=== PATIENT | female | born 1950 | race Caucasian/White ===

== ENCOUNTER 2024-10-04 20:12 | Inpatient (IN) | payer OTHER ==
[~2024-10-04] VITALS: Ht 165.1 cm; Wt 66.7 kg
[2024-10-04 20:20] VITALS: BP 154/81; PULSE 75; RESP 20; TEMP 98.5; O2SAT 99
[2024-10-04] MEDS ORDERED: OxyCODONE HCL/ACETAMINOPHEN 5-325 MG TABLET PO PRN ×2 (21:15)
[2024-10-04] MEDS ORDERED: DEXTROSE 50%-WATER 25 GM/50 ML SYRINGE IVP PRN (21:15)
[2024-10-04] MEDS ORDERED: 0.9% SODIUM CHLORIDE 10 ML SYRINGE IVP PRN (21:15)
[2024-10-04] MEDS ORDERED: ONDANSETRON HCL 4 MG/2 ML VIAL IVP PRN (21:15)
[2024-10-04] MEDS ORDERED: ROSU10TA72 PO (21:28)
[2024-10-04] MEDS ORDERED: BENA-18 PO (21:28)
[2024-10-04] MEDS ORDERED: TRAZ-257 PO (21:28)
[2024-10-04] MEDS ORDERED: OLAN5TAB52 PO (21:28)
[2024-10-04] MEDS ORDERED: DIVA-111 PO (21:28)
[2024-10-04] MEDS ORDERED: SERT-162 PO (21:28)
[2024-10-04] MEDS ORDERED: GLIP5TAB16 PO (21:28)
[2024-10-04] MEDS ORDERED: CEFP200T12 PO (21:28)
[2024-10-04 21:40] LABS: BASOPHILS % (AUTO) 0.3 % (0.0-2.0); EOSINOPHILS % (AUTO) 2.3 % (1.0-6.0); HEMATOCRIT 38.6 % (36-46); LYMPHOCYTES # (AUTO) 1.4 K/uL (1.0-4.8); LYMPHOCYTES % (AUTO) 25.2 % (22.0-44.0); MEAN CORPUSCULAR HEMOGLOBIN 32.1 pg (26.0-34.0); MEAN CORPUSCULAR HGB CONC 33.6 G/dL (31.0-37.0); MEAN CORPUSCULAR VOLUME 95 fL (80-100); MONOCYTES # (AUTO) 0.4 K/uL (0.1-1.0); MONOCYTES % (AUTO) 6.4 % (2.0-9.0); NEUTROPHILS # (AUTO) 3.6 K/uL (1.8-7.7); NEUTROPHILS % (AUTO) 65.8 % (40.0-70.0); PLATELET COUNT (AUTO) 186 K/uL (150-450); RED BLOOD CELL COUNT(AUTO) 4.04 MIL/uL (4.00-5.20); RED CELL DISTRIBUTION WIDTH 12.5 % (11.5-14.5); WHITE BLOOD COUNT (AUTO) 5.5 K/uL (4.5-11.0)
[2024-10-04 21:54] LABS: ALBUMIN 3.3 g/dL (3.4-5.0); BILIRUBIN,TOTAL 0.2 mg/dL (0.1-1.0); CALCIUM, TOTAL 9.1 mg/dL (8.8-10.5); CREATININE 1.34 mg/dL (0.60-1.30); POTASSIUM 4.5 mmol/L (3.5-5.1); TOTAL PROTEIN, SERUM 6.4 g/dL (6.4-8.2)
[2024-10-04] MEDS: OLANZapine 5 MG TABLET PO SCH (22:39)
[2024-10-04] MEDS: BENAZEPRIL HCL 20 MG TABLET PO SCH (22:39)
[2024-10-04] MEDS: INSULIN LISPRO 100 UNITS/ML SQ PRN (22:39)
[2024-10-04] MEDS: DIVALPROEX SODIUM 250 MG DR TABLET PO SCH (22:39)
[2024-10-04] MEDS ORDERED: INFLUENZA VIRUS VACCINE TVS (6MO+) 2024-25/PF 45 MCG/0.5 ML SYRINGE IM. ONE (23:00)
[2024-10-04] MEDS: EMPAGLIFLOZIN 25 MG TABLET PO SCH (23:02)
[2024-10-04] MEDS: CEPHALEXIN MONOHYDRATE 500 MG CAPSULE PO SCH (23:02)
[2024-10-04 23:36] LABS: GLUCOMETER DEV NAME(LOC) 6S.2; GLUCOSE,POINT OF CARE 426 MG/DL (70-110)
[2024-10-05 02:39] VITALS: BP 127/56; PULSE 59; RESP 18; TEMP 97.4; O2SAT 99
[2024-10-05 06:51] LABS: GLUCOMETER DEV NAME(LOC) 6N.1B; GLUCOSE,POINT OF CARE 222 MG/DL (70-110)
[2024-10-05] MEDS: SERTRALINE HCL 100 MG TABLET PO SCH (08:30)
[2024-10-05] MEDS: PANTOPRAZOLE SODIUM 40 MG DR TABLET PO SCH (08:30)
[2024-10-05] MEDS: HEPARIN SODIUM,PORCINE 5,000 UNITS/ML VIAL SQ SCH (08:30)
[2024-10-05] MEDS: DOCUSATE SODIUM 100 MG CAPSULE PO SCH (08:31)
[2024-10-05 08:34] VITALS: BP 99/55; PULSE 64; RESP 18; TEMP 98.2; O2SAT 98
[2024-10-05] MEDS ORDERED: INSULIN GLARGINE,HUM.REC.ANLOG 100 UNITS/ML SQ SCH (09:00)
[2024-10-05] MEDS ORDERED: PANTOPRAZOLE SODIUM 40 MG/VIAL IVP SCH (09:00)
[2024-10-05] MEDS: INSULIN GLARGINE,HUM.REC.ANLOG 100 UNITS/ML SQ SCH (09:00)
[2024-10-05] MEDS ORDERED: CEPHALEXIN MONOHYDRATE 500 MG CAPSULE PO SCH (09:00)
[2024-10-05] MEDS ORDERED: EMPAGLIFLOZIN 25 MG TABLET PO SCH (09:00)
[2024-10-05 10:10] LABS: BASOPHILS % (AUTO) 0.5 % (0.0-2.0); EOSINOPHILS % (AUTO) 4.1 % (1.0-6.0); HEMATOCRIT 37.3 % (36-46); HEMOGLOBIN 12.9 g/dL (12.0-16.0); LYMPHOCYTES # (AUTO) 2.2 K/uL (1.0-4.8); LYMPHOCYTES % (AUTO) 36.2 % (22.0-44.0); MEAN CORPUSCULAR HEMOGLOBIN 32.5 pg (26.0-34.0); MEAN CORPUSCULAR HGB CONC 34.5 G/dL (31.0-37.0); MEAN CORPUSCULAR VOLUME 94 fL (80-100); MONOCYTES # (AUTO) 0.3 K/uL (0.1-1.0); MONOCYTES % (AUTO) 5.3 % (2.0-9.0); NEUTROPHILS # (AUTO) 3.2 K/uL (1.8-7.7); NEUTROPHILS % (AUTO) 53.9 % (40.0-70.0); PLATELET COUNT (AUTO) 200 K/uL (150-450); RED BLOOD CELL COUNT(AUTO) 3.96 MIL/uL (4.00-5.20); RED CELL DISTRIBUTION WIDTH 12.3 % (11.5-14.5)
[2024-10-05 16:47] VITALS: BP 133/73; PULSE 63; RESP 18; TEMP 98; O2SAT 99
[2024-10-05 20:18] VITALS: BP 129/71; PULSE 80; RESP 20; TEMP 97.9; O2SAT 99
[2024-10-05 20:25] LABS: GLUCOMETER DEV NAME(LOC) 6N.1B; GLUCOSE,POINT OF CARE 336 MG/DL (70-110)
[2024-10-05 20:25] LABS: GLUCOMETER DEV NAME(LOC) 6N.1B; GLUCOSE,POINT OF CARE 406 MG/DL (70-110)
[2024-10-05] MEDS: ROSUVASTATIN CALCIUM 10 MG TABLET PO SCH (20:35)
[2024-10-05] MEDS: TraZODone HCL 100 MG TABLET PO SCH (20:36)
[2024-10-05] MEDS: SitaGLIPtin PHOSPHATE 50 MG TABLET PO SCH (20:36)
[2024-10-05 21:55] LABS: GLUCOMETER DEV NAME(LOC) 6N.2B; GLUCOSE,POINT OF CARE 426 MG/DL (70-110)
[2024-10-05 21:56] LABS: GLUCOMETER DEV NAME(LOC) 6S.2; GLUCOSE,POINT OF CARE 106 MG/DL (70-110)
[2024-10-06 05:45] VITALS: BP 107/60; PULSE 69; RESP 18; TEMP 98; O2SAT 98
[2024-10-06 07:10] VITALS: BP 114/64; PULSE 72; RESP 18; TEMP 98.2; O2SAT 96
[2024-10-06 07:11] LABS: GLUCOMETER DEV NAME(LOC) 6N.2B; GLUCOSE,POINT OF CARE 249 MG/DL (70-110)
[2024-10-06] MEDS ORDERED: SERT-440 PO (12:55)
[2024-10-06] MEDS ORDERED: CEPH-558 PO (12:55)
[2024-10-06] MEDS ORDERED: SITA50 PO (12:55)
[2024-10-06] MEDS ORDERED: TRAZ-257 PO (12:55)
[2024-10-06] MEDS ORDERED: EMPA25TA3 PO (12:55)
[2024-10-06] MEDS ORDERED: INSLAN SQ (12:55)
[2024-10-06] MEDS ORDERED: BENA-8 PO (12:55)
[2024-10-06] MEDS ORDERED: DIVA-111 PO (12:55)
[2024-10-06] MEDS ORDERED: OLAN5TAB52 PO (12:55)
[2024-10-06 15:01] VITALS: BP 100/53; PULSE 76; RESP 18; TEMP 97.9; O2SAT 99
[2024-10-06 17:31] LABS: GLUCOMETER DEV NAME(LOC) 6N.2B; GLUCOSE,POINT OF CARE 211 MG/DL (70-110)
[2024-10-06 17:35] LABS: GLUCOMETER DEV NAME(LOC) 6S.2; GLUCOSE,POINT OF CARE 302 MG/DL (70-110)
[2024-10-06 19:45] VITALS: BP 120/58; PULSE 70; RESP 18; TEMP 98; O2SAT 98
[2024-10-06 21:36] LABS: GLUCOMETER DEV NAME(LOC) 6S.2; GLUCOSE,POINT OF CARE 262 MG/DL (70-110)
[2024-10-07 05:00] VITALS: BP 126/57; PULSE 58; RESP 18; TEMP 98.4; O2SAT 97
[2024-10-07 06:21] LABS: GLUCOMETER DEV NAME(LOC) 6N.2B; GLUCOSE,POINT OF CARE 136 MG/DL (70-110)
[2024-10-07 08:06] VITALS: BP 96/54; PULSE 68; RESP 18; TEMP 98.2; O2SAT 99
[2024-10-07 16:09] VITALS: BP 103/57; PULSE 69; RESP 18; TEMP 98.2; O2SAT 99
[2024-10-07 19:25] VITALS: BP 133/67; PULSE 63; RESP 20; TEMP 98; O2SAT 100
[2024-10-07 21:51] LABS: GLUCOMETER DEV NAME(LOC) 6N.2B; GLUCOSE,POINT OF CARE 253 MG/DL (70-110)
[2024-10-08 04:22] VITALS: BP 121/68; PULSE 84; RESP 20; TEMP 98.4; O2SAT 97
[2024-10-08 06:16] LABS: GLUCOMETER DEV NAME(LOC) 6N.2B; GLUCOSE,POINT OF CARE 266 MG/DL (70-110)
[2024-10-08 06:25] LABS: GLUCOMETER DEV NAME(LOC) 6S.2; GLUCOSE,POINT OF CARE 226 MG/DL (70-110)
[2024-10-08 06:26] LABS: GLUCOMETER DEV NAME(LOC) 6S.2; GLUCOSE,POINT OF CARE 154 MG/DL (70-110)
[2024-10-08 08:05] LABS: GLUCOMETER DEV NAME(LOC) 6N.1B; GLUCOSE,POINT OF CARE 255 MG/DL (70-110)
[2024-10-08 08:46] VITALS: BP 139/87; PULSE 77; RESP 18; TEMP 97.3; O2SAT 97
[2024-10-08 13:10] LABS: GLUCOMETER DEV NAME(LOC) 6N.1B; GLUCOSE,POINT OF CARE 218 MG/DL (70-110)
[2024-10-08 16:00] VITALS: BP 130/80; PULSE 78; RESP 19; TEMP 98; O2SAT 98
[2024-10-08 18:01] LABS: GLUCOMETER DEV NAME(LOC) 6N.2B; GLUCOSE,POINT OF CARE 78 MG/DL (70-110)
[2024-10-08 19:27] VITALS: BP 100/64; PULSE 68; RESP 18; TEMP 98; O2SAT 99
[2024-10-08 21:25] LABS: GLUCOMETER DEV NAME(LOC) 6N.1B; GLUCOSE,POINT OF CARE 178 MG/DL (70-110)
[2024-10-09 04:04] VITALS: BP 139/69; PULSE 66; RESP 18; TEMP 97.7; O2SAT 95
[2024-10-09 06:20] LABS: GLUCOMETER DEV NAME(LOC) 6S.2; GLUCOSE,POINT OF CARE 172 MG/DL (70-110)
[2024-10-09 07:12] VITALS: BP 118/51; PULSE 58; RESP 18; TEMP 97.7; O2SAT 99
[2024-10-09 14:31] LABS: GLUCOMETER DEV NAME(LOC) 6N.1B; GLUCOSE,POINT OF CARE 74 MG/DL (70-110)
[2024-10-09 14:31] LABS: GLUCOMETER DEV NAME(LOC) 6N.1B; GLUCOSE,POINT OF CARE 170 MG/DL (70-110)
[2024-10-09 15:40] VITALS: BP 122/60; PULSE 62; RESP 18; TEMP 98.2; O2SAT 99
[2024-10-09 19:51] VITALS: BP 124/72; PULSE 66; RESP 19; TEMP 97.5; O2SAT 98
[2024-10-09 20:15] LABS: GLUCOMETER DEV NAME(LOC) 6S.2; GLUCOSE,POINT OF CARE 156 MG/DL (70-110)
[2024-10-10 05:04] VITALS: BP 120/74; PULSE 73; RESP 18; TEMP 98.1; O2SAT 97
[2024-10-10 05:41] LABS: GLUCOMETER DEV NAME(LOC) 6N.1B; GLUCOSE,POINT OF CARE 286 MG/DL (70-110)
[2024-10-10 07:16] LABS: GLUCOMETER DEV NAME(LOC) 6N.2B; GLUCOSE,POINT OF CARE 275 MG/DL (70-110)
[2024-10-10 08:25] VITALS: BP 113/59; PULSE 71; RESP 20; TEMP 98.3; O2SAT 98
[2024-10-10 16:30] VITALS: BP 136/64; PULSE 72; RESP 18; TEMP 98; O2SAT 96
[2024-10-10 20:12] VITALS: BP 135/80; PULSE 74; RESP 20; TEMP 98.2; O2SAT 98
[2024-10-10 21:55] LABS: GLUCOMETER DEV NAME(LOC) 6N.2B; GLUCOSE,POINT OF CARE 272 MG/DL (70-110)
[2024-10-10 23:05] LABS: GLUCOMETER DEV NAME(LOC) 6N.2B; GLUCOSE,POINT OF CARE 257 MG/DL (70-110)
[2024-10-10 23:35] LABS: COVID AG,FIA SOURCE NASAL SWAB
[2024-10-10 23:42] LABS: SARS-COV2 (COVID) ANTIGEN,FIA Negative (Negative)
[2024-10-11 06:25] VITALS: BP 115/60; PULSE 69; RESP 18; TEMP 98.5; O2SAT 96
[2024-10-11 06:40] LABS: GLUCOMETER DEV NAME(LOC) 6N.2B; GLUCOSE,POINT OF CARE 164 MG/DL (70-110)
[2024-10-11 15:00] LABS: GLUCOMETER DEV NAME(LOC) 6S.2; GLUCOSE,POINT OF CARE 198 MG/DL (70-110)
[2024-10-11 15:00] LABS: GLUCOMETER DEV NAME(LOC) 6S.2; GLUCOSE,POINT OF CARE 186 MG/DL (70-110)
[2024-10-11 19:20] VITALS: BP 112/64; PULSE 66; RESP 20; TEMP 98.3; O2SAT 97
[2024-10-11 22:41] LABS: GLUCOMETER DEV NAME(LOC) 6N.2B; GLUCOSE,POINT OF CARE 189 MG/DL (70-110)
[2024-10-11 22:41] LABS: GLUCOMETER DEV NAME(LOC) 6N.2B; GLUCOSE,POINT OF CARE 142 MG/DL (70-110)
[2024-10-12 03:38] VITALS: BP 124/74; PULSE 62; RESP 18; TEMP 98.3; O2SAT 98
[2024-10-12 06:56] LABS: GLUCOMETER DEV NAME(LOC) 6N.1B; GLUCOSE,POINT OF CARE 151 MG/DL (70-110)
[2024-10-12 08:21] VITALS: BP 124/64; PULSE 68; RESP 18; TEMP 98.4; O2SAT 99
[2024-10-12 17:01] VITALS: BP 111/63; PULSE 70; RESP 18; TEMP 98.3; O2SAT 99
[2024-10-12 19:09] VITALS: BP 158/77; PULSE 71; RESP 19; TEMP 97.9; O2SAT 99
[2024-10-12] MEDS ORDERED: BENA-18 PO (19:58)
[2024-10-12 20:37] LABS: GLUCOMETER DEV NAME(LOC) 6N.1B; GLUCOSE,POINT OF CARE 173 MG/DL (70-110)
[2024-10-12 20:37] LABS: GLUCOMETER DEV NAME(LOC) 6S.2; GLUCOSE,POINT OF CARE 133 MG/DL (70-110)
[2024-10-14 06:11] LABS: GLUCOMETER DEV NAME(LOC) 6N.2B; GLUCOSE,POINT OF CARE 194 MG/DL (70-110)
== END 2024-10-12 20:56 | DRG 638 ==
LOC: 6S 20:12
PROVIDERS: ADMIT Internal Medicine; ATTEND Internal Medicine
PROC: GZ56ZZZ Individual Psychotherapy, Supportive (ICD-10-PCS; principal; 2024-10-05)
DX: E11.65 Type 2 diabetes mellitus with hyperglycemia (principal); F20.0 Paranoid schizophrenia; N39.0 Urinary tract infection, site not specified; Z91.148 Patient's other noncompliance with medication regimen for other reason; I10 Essential (primary) hypertension; E78.00 Pure hypercholesterolemia, unspecified; Z53.20 Procedure and treatment not carried out because of patient's decision for unspecified reasons; Z79.4 Long term (current) use of insulin; Z79.84 Long term (current) use of oral hypoglycemic drugs; Z91.199 Patient's noncompliance with other medical treatment and regimen due to unspecified reason; Z79.899 Other long term (current) drug therapy
CPT/HCPCS: 80053; 82962; 83036; 85025; J1644; J1815

== ENCOUNTER 2024-10-12 15:58 | Inpatient (IN) | payer OTHER, MEDICAID ==
[~2024-10-12] VITALS: Ht 167.6 cm; Wt 132.0 kg
[~2024-10-12 15:58] MED LIST: BENA-8 PO; CEPH-558 PO; DIVA-111 PO; EMPA25TA3 PO; INSLAN SQ; OLAN5TAB52 PO; ROSU10TA72 PO; SERT-440 PO; SITA50 PO; TRAZ-257 PO
[2024-10-12] MEDS ORDERED: HALOPERIDOL 5 MG TABLET PO PRN (19:45)
[2024-10-12] MEDS ORDERED: BENA-18 PO (19:58)
[2024-10-12] MEDS: TraZODone HCL 100 MG TABLET PO SCH (21:00)
[2024-10-12] MEDS: DIVALPROEX SODIUM 250 MG DR TABLET PO SCH (21:00)
[2024-10-12] MEDS: OLANZapine 5 MG TABLET PO SCH (21:00)
[2024-10-12 21:30] VITALS: BP 188/96; PULSE 80; RESP 1; RESP 18; TEMP 98.4; O2SAT 97
[2024-10-13 06:40] LABS: GLUCOMETER DEV NAME(LOC) 3EX.2; GLUCOSE,POINT OF CARE 123 MG/DL (70-110)
[2024-10-13] MEDS: EMPAGLIFLOZIN 25 MG TABLET PO SCH (08:39)
[2024-10-13] MEDS: SitaGLIPtin PHOSPHATE 50 MG TABLET PO SCH (08:39)
[2024-10-13] MEDS: CEPHALEXIN MONOHYDRATE 500 MG CAPSULE PO SCH (08:39)
[2024-10-13] MEDS: SERTRALINE HCL 100 MG TABLET PO SCH (08:40)
[2024-10-13] MEDS: INSULIN GLARGINE,HUM.REC.ANLOG 100 UNITS/ML SQ SCH (09:00)
[2024-10-13 09:50] VITALS: BP 134/56; PULSE 74; RESP 18; TEMP 97.4; O2SAT 98
[2024-10-13 11:36] LABS: GLUCOMETER DEV NAME(LOC) 3EX.2; GLUCOSE,POINT OF CARE 231 MG/DL (70-110)
[2024-10-13] MEDS: INSULIN LISPRO 100 UNITS/ML SQ PRN (11:42)
[2024-10-13] MEDS ORDERED: DEXTROSE 50%-WATER 25 GM/50 ML SYRINGE IVP PRN (11:45)
[2024-10-13] MEDS ORDERED: MAG HYDROX/ALUMINUM HYD/SIMETH ES 30 ML SUSPENSION UDCUP PO PRN (11:45)
[2024-10-13] MEDS ORDERED: MAGNESIUM HYDROXIDE SUSPENSION 30 ML UDCUP PO PRN (11:45)
[2024-10-13] MEDS ORDERED: ACETAMINOPHEN 325 MG TABLET PO PRN (11:45)
[2024-10-13] MEDS ORDERED: CloNIDine HCL 0.1 MG TABLET PO PRN (11:45)
[2024-10-13] MEDS ORDERED: ONDANSETRON 4 MG TABLET PO PRN (11:45)
[2024-10-13] MEDS ORDERED: ALBUTEROL SULFATE HFA 90 MCG/PUFF 8 GM INHALER IH PRN (11:45)
[2024-10-13] MEDS ORDERED: NICOTINE 14 MG/24 HOUR PATCH TD PRN (11:45)
[2024-10-13] MEDS ORDERED: LOPERAMIDE HCL 2 MG CAPSULE PO PRN (11:45)
[2024-10-13] MEDS ORDERED: PETROLATUM,WHITE 28 GM JELLY TP PRN (11:45)
[2024-10-13] MEDS: DOCUSATE SODIUM 100 MG CAPSULE PO PRN (11:48)
[2024-10-13 17:06] LABS: GLUCOMETER DEV NAME(LOC) 3EX.2; GLUCOSE,POINT OF CARE 223 MG/DL (70-110)
[2024-10-13 20:51] LABS: GLUCOMETER DEV NAME(LOC) 3EX.2; GLUCOSE,POINT OF CARE 155 MG/DL (70-110)
[2024-10-13 20:55] VITALS: BP 120/58; PULSE 80; RESP 18; TEMP 98.1; O2SAT 98
[2024-10-13] MEDS: BENAZEPRIL HCL 20 MG TABLET PO SCH (20:58)
[2024-10-13] MEDS: ROSUVASTATIN CALCIUM 10 MG TABLET PO SCH (20:58)
[2024-10-14 06:26] LABS: GLUCOMETER DEV NAME(LOC) 3EX.2; GLUCOSE,POINT OF CARE 184 MG/DL (70-110)
[2024-10-14 07:25] LABS: BASOPHILS % (AUTO) 1.4 % (0.0-2.0); EOSINOPHILS % (AUTO) 3.3 % (1.0-6.0); HEMATOCRIT 31.3 % (36-46); HEMOGLOBIN 10.8 g/dL (12.0-16.0); LYMPHOCYTES # (AUTO) 1.3 K/uL (1.0-4.8); LYMPHOCYTES % (AUTO) 29.7 % (22.0-44.0); MEAN CORPUSCULAR HEMOGLOBIN 32.8 pg (26.0-34.0); MEAN CORPUSCULAR HGB CONC 34.4 G/dL (31.0-37.0); MEAN CORPUSCULAR VOLUME 95 fL (80-100); MONOCYTES # (AUTO) 0.5 K/uL (0.1-1.0); MONOCYTES % (AUTO) 10.8 % (2.0-9.0); NEUTROPHILS # (AUTO) 2.3 K/uL (1.8-7.7); NEUTROPHILS % (AUTO) 54.8 % (40.0-70.0); PLATELET COUNT (AUTO) 158 K/uL (150-450); RED BLOOD CELL COUNT(AUTO) 3.28 MIL/uL (4.00-5.20); RED CELL DISTRIBUTION WIDTH 12.8 % (11.5-14.5); WHITE BLOOD COUNT (AUTO) 4.3 K/uL (4.5-11.0)
[2024-10-14 07:32] LABS: HEMOGLOBIN A1C 9.9 % (3.8-5.6)
[2024-10-14 07:43] LABS: ALBUMIN 2.7 g/dL (3.4-5.0); BILIRUBIN,TOTAL 0.2 mg/dL (0.1-1.0); CALCIUM, TOTAL 8.6 mg/dL (8.8-10.5); CREATININE 1.89 mg/dL (0.60-1.30); POTASSIUM 4.3 mmol/L (3.5-5.1); THYROID STIMULATING HORMONE 2.49 uIU/mL (0.36-3.74); TOTAL PROTEIN, SERUM 5.4 g/dL (6.4-8.2)
[2024-10-14 08:44] VITALS: BP 130/60; PULSE 61; RESP 18; TEMP 97.8; O2SAT 98
[2024-10-14 08:59] LABS: CHOL/HDL RATIO 2.6 (3.9-5.7)
[2024-10-14 12:46] LABS: GLUCOMETER DEV NAME(LOC) 3EX.2; GLUCOSE,POINT OF CARE 185 MG/DL (70-110)
[2024-10-14 18:10] LABS: GLUCOMETER DEV NAME(LOC) 3EX.2; GLUCOSE,POINT OF CARE 185 MG/DL (70-110)
[2024-10-14 21:03] VITALS: RESP 18; TEMP 98
[2024-10-14 21:06] LABS: GLUCOMETER DEV NAME(LOC) 3EX.2; GLUCOSE,POINT OF CARE 245 MG/DL (70-110)
[2024-10-14] MEDS: ZOLPIDEM TARTRATE 10 MG TABLET PO PRN (21:35)
[2024-10-14] MEDS: LORazepam 2 MG TABLET PO PRN (22:48)
[2024-10-15 06:25] LABS: GLUCOMETER DEV NAME(LOC) 3EX.2; GLUCOSE,POINT OF CARE 179 MG/DL (70-110)
[2024-10-15] MEDS: AmLODIPine BESYLATE 10 MG TABLET PO SCH (08:44)
[2024-10-15 12:06] LABS: GLUCOMETER DEV NAME(LOC) 3EX.2; GLUCOSE,POINT OF CARE 231 MG/DL (70-110)
[2024-10-15 17:11] LABS: GLUCOMETER DEV NAME(LOC) 3EX.2; GLUCOSE,POINT OF CARE 204 MG/DL (70-110)
[2024-10-15 21:41] LABS: GLUCOMETER DEV NAME(LOC) 3EX.2; GLUCOSE,POINT OF CARE 168 MG/DL (70-110)
[2024-10-15 22:11] VITALS: BP 135/65; PULSE 78; RESP 18; TEMP 98; O2SAT 98
[2024-10-16 06:45] LABS: GLUCOMETER DEV NAME(LOC) 3EX.2; GLUCOSE,POINT OF CARE 278 MG/DL (70-110)
[2024-10-16 11:40] LABS: GLUCOMETER DEV NAME(LOC) 3EX.2; GLUCOSE,POINT OF CARE 218 MG/DL (70-110)
[2024-10-16 12:23] VITALS: BP 149/88; PULSE 83; RESP 19; TEMP 97.8; O2SAT 97
[2024-10-16 16:45] LABS: GLUCOMETER DEV NAME(LOC) 3EX.2; GLUCOSE,POINT OF CARE 208 MG/DL (70-110)
[2024-10-16 20:26] LABS: GLUCOMETER DEV NAME(LOC) 3EX.2; GLUCOSE,POINT OF CARE 215 MG/DL (70-110)
[2024-10-16 22:07] VITALS: RESP 18
[2024-10-17 09:56] VITALS: BP 140/68; PULSE 75; RESP 18; TEMP 97.4; O2SAT 98
[2024-10-17 11:35] LABS: GLUCOMETER DEV NAME(LOC) 3EX.2; GLUCOSE,POINT OF CARE 215 MG/DL (70-110)
[2024-10-17 17:01] LABS: GLUCOMETER DEV NAME(LOC) 3EX.2; GLUCOSE,POINT OF CARE 187 MG/DL (70-110)
[2024-10-17 20:38] VITALS: BP 138/66; PULSE 71; RESP 19; TEMP 97.3; O2SAT 98
[2024-10-18 06:26] LABS: GLUCOMETER DEV NAME(LOC) 3EX.2; GLUCOSE,POINT OF CARE 196 MG/DL (70-110)
[2024-10-18 10:19] VITALS: BP 153/91; PULSE 75; RESP 18; TEMP 97.5; O2SAT 97
[2024-10-18 12:01] LABS: GLUCOMETER DEV NAME(LOC) 3EX.2; GLUCOSE,POINT OF CARE 229 MG/DL (70-110)
[2024-10-18 20:53] VITALS: RESP 18
[2024-10-19 09:29] VITALS: RESP 19; TEMP 98.2
[2024-10-19 22:45] VITALS: RESP 18
[2024-10-20 08:30] VITALS: RESP 18
[2024-10-20 20:13] VITALS: RESP 18
[2024-10-21 08:20] VITALS: BP 154/72; PULSE 72; RESP 19; TEMP 98.2; O2SAT 97
[2024-10-21 21:19] VITALS: BP 145/89; PULSE 78; RESP 18; TEMP 97.9; O2SAT 99
[2024-10-22 06:51] LABS: GLUCOMETER DEV NAME(LOC) 3EX.2; GLUCOSE,POINT OF CARE 340 MG/DL (70-110)
[2024-10-22 07:39] LABS: CALCIUM, TOTAL 9.2 mg/dL (8.8-10.5); CREATININE 1.81 mg/dL (0.60-1.30)
[2024-10-22 15:59] VITALS: BP 148/76; PULSE 75; RESP 18; TEMP 97.6; O2SAT 99
[2024-10-22 22:15] LABS: GLUCOMETER DEV NAME(LOC) 3EX.2; GLUCOSE,POINT OF CARE 304 MG/DL (70-110)
[2024-10-22 23:29] VITALS: BP 163/93; PULSE 83; RESP 18; TEMP 97.6; O2SAT 97
[2024-10-23 06:31] LABS: GLUCOMETER DEV NAME(LOC) 3EX.2; GLUCOSE,POINT OF CARE 159 MG/DL (70-110)
[2024-10-23 09:51] VITALS: BP 123/61; PULSE 75; RESP 19; TEMP 96.8; O2SAT 96
[2024-10-23 12:21] LABS: GLUCOMETER DEV NAME(LOC) 3EX.2; GLUCOSE,POINT OF CARE 360 MG/DL (70-110)
[2024-10-23 17:21] LABS: GLUCOMETER DEV NAME(LOC) 3EX.2; GLUCOSE,POINT OF CARE 201 MG/DL (70-110)
[2024-10-23 20:11] VITALS: BP 130/79; PULSE 79; RESP 18; TEMP 97.9; O2SAT 98
[2024-10-23 21:35] LABS: GLUCOMETER DEV NAME(LOC) 3EX.2; GLUCOSE,POINT OF CARE 243 MG/DL (70-110)
[2024-10-24 06:35] LABS: GLUCOMETER DEV NAME(LOC) 3EX.2; GLUCOSE,POINT OF CARE 282 MG/DL (70-110)
[2024-10-24 09:04] VITALS: BP 115/68; PULSE 85; RESP 18; TEMP 97.1; O2SAT 99
[2024-10-24 12:06] LABS: GLUCOMETER DEV NAME(LOC) 3EX.2; GLUCOSE,POINT OF CARE 150 MG/DL (70-110)
[2024-10-24 18:00] LABS: GLUCOMETER DEV NAME(LOC) 3EX.2; GLUCOSE,POINT OF CARE 66 MG/DL (70-110)
[2024-10-24 18:30] LABS: GLUCOMETER DEV NAME(LOC) 3EX.2; GLUCOSE,POINT OF CARE 182 MG/DL (70-110)
[2024-10-24 20:39] VITALS: BP 142/63; PULSE 73; RESP 17; TEMP 97.3
[2024-10-25 06:31] LABS: GLUCOMETER DEV NAME(LOC) 3EX.2; GLUCOSE,POINT OF CARE 287 MG/DL (70-110)
[2024-10-25 07:23] LABS: CALCIUM, TOTAL 8.6 mg/dL (8.8-10.5); CREATININE 1.72 mg/dL (0.60-1.30); POTASSIUM 4.2 mmol/L (3.5-5.1)
[2024-10-25 08:24] VITALS: BP 140/85; PULSE 65; RESP 17; TEMP 98; O2SAT 97
[2024-10-25 12:00] LABS: GLUCOMETER DEV NAME(LOC) 3EX.2; GLUCOSE,POINT OF CARE 184 MG/DL (70-110)
[2024-10-25 17:36] LABS: GLUCOMETER DEV NAME(LOC) 3EX.2; GLUCOSE,POINT OF CARE 298 MG/DL (70-110)
[2024-10-25 20:00] VITALS: BP 146/72; PULSE 79; RESP 18; TEMP 98; O2SAT 99
[2024-10-25 20:21] LABS: GLUCOMETER DEV NAME(LOC) 3EX.2; GLUCOSE,POINT OF CARE 266 MG/DL (70-110)
[2024-10-26 06:10] LABS: GLUCOMETER DEV NAME(LOC) 3EX.2; GLUCOSE,POINT OF CARE 305 MG/DL (70-110)
[2024-10-26 11:04] VITALS: BP 147/72; PULSE 69; RESP 19; TEMP 97; O2SAT 98
[2024-10-26 11:51] LABS: GLUCOMETER DEV NAME(LOC) 3EX.2; GLUCOSE,POINT OF CARE 229 MG/DL (70-110)
[2024-10-26 17:56] LABS: GLUCOMETER DEV NAME(LOC) 3EX.2; GLUCOSE,POINT OF CARE 334 MG/DL (70-110)
[2024-10-26 20:11] LABS: GLUCOMETER DEV NAME(LOC) 3EX.2; GLUCOSE,POINT OF CARE 380 MG/DL (70-110)
[2024-10-26 20:26] VITALS: BP 134/65; PULSE 75; RESP 19; TEMP 98.2; O2SAT 98
[2024-10-27 06:31] LABS: GLUCOMETER DEV NAME(LOC) 3EX.2; GLUCOSE,POINT OF CARE 333 MG/DL (70-110)
[2024-10-27 08:36] VITALS: BP 161/73; PULSE 76; RESP 18; TEMP 97.8; O2SAT 98
[2024-10-27 12:05] LABS: GLUCOMETER DEV NAME(LOC) 3EX.2; GLUCOSE,POINT OF CARE 310 MG/DL (70-110)
[2024-10-27 16:20] LABS: GLUCOMETER DEV NAME(LOC) 3EX.2; GLUCOSE,POINT OF CARE 332 MG/DL (70-110)
[2024-10-27 20:17] VITALS: BP 157/77; PULSE 79; RESP 18; TEMP 97.4; O2SAT 99
[2024-10-27 21:31] LABS: GLUCOMETER DEV NAME(LOC) 3EX.2; GLUCOSE,POINT OF CARE 360 MG/DL (70-110)
[2024-10-28 06:30] LABS: GLUCOMETER DEV NAME(LOC) 3EX.2; GLUCOSE,POINT OF CARE 351 MG/DL (70-110)
[2024-10-28 09:00] VITALS: BP 145/70; PULSE 78; RESP 18; TEMP 97.8; O2SAT 98
[2024-10-28 11:56] LABS: GLUCOMETER DEV NAME(LOC) 3EX.2; GLUCOSE,POINT OF CARE 346 MG/DL (70-110)
[2024-10-28 17:31] LABS: GLUCOMETER DEV NAME(LOC) 3EX.2; GLUCOSE,POINT OF CARE 275 MG/DL (70-110)
[2024-10-28 20:23] VITALS: BP 144/70; PULSE 85; RESP 19; TEMP 97.4; O2SAT 95
[2024-10-28 21:40] LABS: GLUCOMETER DEV NAME(LOC) 3EX.2; GLUCOSE,POINT OF CARE 347 MG/DL (70-110)
[2024-10-29 06:21] LABS: GLUCOMETER DEV NAME(LOC) 3EX.2; GLUCOSE,POINT OF CARE 366 MG/DL (70-110)
[2024-10-29 08:00] VITALS: BP 143/71; PULSE 77; RESP 18; TEMP 97.9; O2SAT 98
[2024-10-29 09:04] LABS: CREATININE 1.8 mg/dL (0.60-1.30); POTASSIUM 4.5 mmol/L (3.5-5.1)
[2024-10-29 11:50] LABS: GLUCOMETER DEV NAME(LOC) 3EX.2; GLUCOSE,POINT OF CARE 284 MG/DL (70-110)
[2024-10-29 18:11] LABS: GLUCOMETER DEV NAME(LOC) 3EX.2; GLUCOSE,POINT OF CARE 284 MG/DL (70-110)
[2024-10-29 20:04] VITALS: BP 136/82; PULSE 71; RESP 18; TEMP 98.8; O2SAT 98
[2024-10-29 20:56] LABS: GLUCOMETER DEV NAME(LOC) 3EX.2; GLUCOSE,POINT OF CARE 284 MG/DL (70-110)
[2024-10-30 06:36] LABS: GLUCOMETER DEV NAME(LOC) 3EX.2; GLUCOSE,POINT OF CARE 217 MG/DL (70-110)
[2024-10-30 08:21] VITALS: BP 125/73; PULSE 77; RESP 18; TEMP 97.3; O2SAT 97
[2024-10-30 11:56] LABS: GLUCOMETER DEV NAME(LOC) 3EX.2; GLUCOSE,POINT OF CARE 264 MG/DL (70-110)
[2024-10-30 16:46] LABS: GLUCOMETER DEV NAME(LOC) 3EX.2; GLUCOSE,POINT OF CARE 389 MG/DL (70-110)
[2024-10-30] MEDS: MetFORMIN HCL 500 MG TABLET PO SCH (16:49)
[2024-10-30 21:10] VITALS: BP 139/63; PULSE 75; RESP 17; TEMP 98; O2SAT 98
[2024-10-30 21:46] LABS: GLUCOMETER DEV NAME(LOC) 3EX.2; GLUCOSE,POINT OF CARE 230 MG/DL (70-110)
[2024-10-31 06:36] LABS: GLUCOMETER DEV NAME(LOC) 3EX.2; GLUCOSE,POINT OF CARE 229 MG/DL (70-110)
[2024-10-31 09:17] VITALS: BP 129/73; PULSE 73; RESP 17; TEMP 98.3; O2SAT 96
[2024-10-31 11:51] LABS: GLUCOMETER DEV NAME(LOC) 3EX.2; GLUCOSE,POINT OF CARE 216 MG/DL (70-110)
[2024-10-31 17:26] LABS: GLUCOMETER DEV NAME(LOC) 3EX.2; GLUCOSE,POINT OF CARE 290 MG/DL (70-110)
[2024-10-31 20:20] VITALS: BP 155/79; PULSE 77; RESP 18; TEMP 97.2; O2SAT 99
[2024-10-31 21:21] LABS: GLUCOMETER DEV NAME(LOC) 3EX.2; GLUCOSE,POINT OF CARE 250 MG/DL (70-110)
[2024-11-01 06:42] LABS: GLUCOMETER DEV NAME(LOC) 3EX.2; GLUCOSE,POINT OF CARE 156 MG/DL (70-110)
[2024-11-01 08:27] VITALS: BP 153/76; PULSE 7; RESP 18; TEMP 97.9; O2SAT 96
[2024-11-01 12:16] LABS: GLUCOMETER DEV NAME(LOC) 3E.C; GLUCOSE,POINT OF CARE 250 MG/DL (70-110)
[2024-11-01 17:50] LABS: GLUCOMETER DEV NAME(LOC) 3EX.2; GLUCOSE,POINT OF CARE 226 MG/DL (70-110)
[2024-11-01 20:23] VITALS: BP 142/76; PULSE 70; RESP 18; TEMP 98; O2SAT 98
[2024-11-01 20:26] LABS: GLUCOMETER DEV NAME(LOC) 3EX.2; GLUCOSE,POINT OF CARE 212 MG/DL (70-110)
[2024-11-02 06:46] LABS: GLUCOMETER DEV NAME(LOC) 3EX.2; GLUCOSE,POINT OF CARE 237 MG/DL (70-110)
[2024-11-02 09:02] VITALS: BP 148/70; PULSE 67; RESP 18; TEMP 98; O2SAT 97
[2024-11-02 11:46] LABS: GLUCOMETER DEV NAME(LOC) 3EX.2; GLUCOSE,POINT OF CARE 170 MG/DL (70-110)
[2024-11-02 17:21] LABS: GLUCOMETER DEV NAME(LOC) 3EX.2; GLUCOSE,POINT OF CARE 289 MG/DL (70-110)
[2024-11-02 20:26] LABS: GLUCOMETER DEV NAME(LOC) 3EX.2; GLUCOSE,POINT OF CARE 188 MG/DL (70-110)
[2024-11-02 22:16] VITALS: BP 137/75; PULSE 78; RESP 18; TEMP 97.9
[2024-11-03 05:51] LABS: GLUCOMETER DEV NAME(LOC) 3EX.2; GLUCOSE,POINT OF CARE 240 MG/DL (70-110)
[2024-11-03 08:06] LABS: CALCIUM, TOTAL 8.7 mg/dL (8.8-10.5); CREATININE 1.87 mg/dL (0.60-1.30); POTASSIUM 4.6 mmol/L (3.5-5.1)
[2024-11-03 08:49] VITALS: BP 154/84; PULSE 78; RESP 17; TEMP 96.8; O2SAT 98
[2024-11-03 11:55] LABS: GLUCOMETER DEV NAME(LOC) 3EX.2; GLUCOSE,POINT OF CARE 216 MG/DL (70-110)
[2024-11-03] MEDS: GlipiZIDE 5 MG TABLET PO SCH (16:34)
[2024-11-03 17:51] LABS: GLUCOMETER DEV NAME(LOC) 3EX.2; GLUCOSE,POINT OF CARE 297 MG/DL (70-110)
[2024-11-03 20:03] VITALS: BP 161/75; PULSE 72; RESP 18; TEMP 97.2; O2SAT 98
[2024-11-04 06:46] LABS: GLUCOMETER DEV NAME(LOC) 3EX.2; GLUCOSE,POINT OF CARE 221 MG/DL (70-110)
[2024-11-04 08:40] VITALS: BP 142/75; PULSE 63; RESP 18; TEMP 98; O2SAT 98
[2024-11-04 12:11] LABS: GLUCOMETER DEV NAME(LOC) 3EX.2; GLUCOSE,POINT OF CARE 122 MG/DL (70-110)
[2024-11-04 18:05] LABS: GLUCOMETER DEV NAME(LOC) 3EX.2; GLUCOSE,POINT OF CARE 274 MG/DL (70-110)
[2024-11-04 20:10] LABS: GLUCOMETER DEV NAME(LOC) 3EX.2; GLUCOSE,POINT OF CARE 191 MG/DL (70-110)
[2024-11-04 20:47] VITALS: BP 142/77; PULSE 78; RESP 18; TEMP 98.2; O2SAT 97
[2024-11-05 07:01] LABS: GLUCOMETER DEV NAME(LOC) 3EX.2; GLUCOSE,POINT OF CARE 209 MG/DL (70-110)
[2024-11-05 11:01] VITALS: BP 150/73; PULSE 73; RESP 18; TEMP 97.9; O2SAT 99
[2024-11-05] MEDS ORDERED: AMLO-258 PO (11:17)
[2024-11-05] MEDS ORDERED: GLIP5TAB16 PO (11:18)
[2024-11-05 12:15] LABS: GLUCOMETER DEV NAME(LOC) 3EX.2; GLUCOSE,POINT OF CARE 244 MG/DL (70-110)
[2024-11-05 16:20] LABS: CALCIUM, TOTAL 9.4 mg/dL (8.8-10.5); CREATININE 2.44 mg/dL (0.60-1.30); POTASSIUM 4.9 mmol/L (3.5-5.1)
[2024-11-05 17:11] LABS: GLUCOMETER DEV NAME(LOC) 3EX.2; GLUCOSE,POINT OF CARE 197 MG/DL (70-110)
[2024-11-05 17:11] LABS: GLUCOMETER DEV NAME(LOC) 3EX.2; GLUCOSE,POINT OF CARE 242 MG/DL (70-110)
[2024-11-05 21:00] VITALS: BP 138/68; PULSE 60; RESP 18; TEMP 98; O2SAT 97
[2024-11-05 21:35] LABS: GLUCOMETER DEV NAME(LOC) 3EX.2; GLUCOSE,POINT OF CARE 244 MG/DL (70-110)
[2024-11-06 06:46] LABS: GLUCOMETER DEV NAME(LOC) 3EX.2; GLUCOSE,POINT OF CARE 267 MG/DL (70-110)
[2024-11-06 08:31] VITALS: BP 160/75; PULSE 76; RESP 18; TEMP 97.3; O2SAT 99
[2024-11-06 12:25] LABS: GLUCOMETER DEV NAME(LOC) 3EX.2; GLUCOSE,POINT OF CARE 355 MG/DL (70-110)
[2024-11-06 17:46] LABS: GLUCOMETER DEV NAME(LOC) 3EX.2; GLUCOSE,POINT OF CARE 278 MG/DL (70-110)
[2024-11-06 20:35] VITALS: BP 139/77; PULSE 69; RESP 18; TEMP 98.2; O2SAT 100
[2024-11-06 22:21] LABS: GLUCOMETER DEV NAME(LOC) 3EX.2; GLUCOSE,POINT OF CARE 267 MG/DL (70-110)
[2024-11-07 06:31] LABS: GLUCOMETER DEV NAME(LOC) 3EX.2; GLUCOSE,POINT OF CARE 309 MG/DL (70-110)
[2024-11-07 08:44] VITALS: BP 143/71; PULSE 68; RESP 18; TEMP 97.8; O2SAT 100
[2024-11-07 11:25] LABS: GLUCOMETER DEV NAME(LOC) 3EX.2; GLUCOSE,POINT OF CARE 270 MG/DL (70-110)
[2024-11-07] MEDS ORDERED: DENTURE ADHESIVE 68 GM CREAM DT PRN (16:00)
[2024-11-07 17:06] LABS: GLUCOMETER DEV NAME(LOC) 3EX.2; GLUCOSE,POINT OF CARE 336 MG/DL (70-110)
[2024-11-07 20:30] VITALS: BP 144/74; PULSE 66; RESP 18; TEMP 98; O2SAT 98
[2024-11-07 22:16] LABS: GLUCOMETER DEV NAME(LOC) 3EX.2; GLUCOSE,POINT OF CARE 408 MG/DL (70-110)
[2024-11-07] MEDS: GlipiZIDE 5 MG TABLET PO ONE (22:21)
[2024-11-08] MEDS: GlipiZIDE 5 MG TABLET PO SCH (06:43)
[2024-11-08 06:51] LABS: GLUCOMETER DEV NAME(LOC) 3EX.2; GLUCOSE,POINT OF CARE 256 MG/DL (70-110)
[2024-11-08 08:17] LABS: CALCIUM, TOTAL 9.1 mg/dL (8.8-10.5); CREATININE 1.78 mg/dL (0.60-1.30); POTASSIUM 4.3 mmol/L (3.5-5.1)
[2024-11-08 09:25] VITALS: BP 128/63; PULSE 71; RESP 18; TEMP 97.1; O2SAT 100
[2024-11-08 11:41] LABS: GLUCOMETER DEV NAME(LOC) 3EX.2; GLUCOSE,POINT OF CARE 346 MG/DL (70-110)
[2024-11-08 16:37] LABS: GLUCOMETER DEV NAME(LOC) 3EX.2; GLUCOSE,POINT OF CARE 358 MG/DL (70-110)
[2024-11-08 21:21] LABS: GLUCOMETER DEV NAME(LOC) 3EX.2; GLUCOSE,POINT OF CARE 304 MG/DL (70-110)
[2024-11-08 22:51] VITALS: BP 141/66; PULSE 76; RESP 18; TEMP 98.3; O2SAT 99
[2024-11-09 07:15] LABS: GLUCOMETER DEV NAME(LOC) 3EX.2; GLUCOSE,POINT OF CARE 252 MG/DL (70-110)
[2024-11-09 08:00] VITALS: BP 139/75; PULSE 71; RESP 18; TEMP 97; O2SAT 97
[2024-11-09 11:41] LABS: GLUCOMETER DEV NAME(LOC) 3EX.2; GLUCOSE,POINT OF CARE 252 MG/DL (70-110)
[2024-11-09 16:36] LABS: GLUCOMETER DEV NAME(LOC) 3EX.2; GLUCOSE,POINT OF CARE 254 MG/DL (70-110)
[2024-11-09 20:41] LABS: GLUCOMETER DEV NAME(LOC) 3EX.2; GLUCOSE,POINT OF CARE 366 MG/DL (70-110)
[2024-11-09 21:39] VITALS: BP 137/72; PULSE 92; RESP 17; TEMP 98.2; O2SAT 98
[2024-11-10 06:45] LABS: GLUCOMETER DEV NAME(LOC) 3EX.2; GLUCOSE,POINT OF CARE 164 MG/DL (70-110)
[2024-11-10 08:31] VITALS: BP 141/76; PULSE 84; RESP 18; TEMP 97.3; O2SAT 99
[2024-11-10 12:06] LABS: GLUCOMETER DEV NAME(LOC) 3EX.2; GLUCOSE,POINT OF CARE 223 MG/DL (70-110)
[2024-11-10 16:50] LABS: GLUCOMETER DEV NAME(LOC) 3EX.2; GLUCOSE,POINT OF CARE 390 MG/DL (70-110)
[2024-11-10 20:26] LABS: GLUCOMETER DEV NAME(LOC) 3EX.2; GLUCOSE,POINT OF CARE 363 MG/DL (70-110)
[2024-11-10 20:55] VITALS: BP 138/74; PULSE 64; RESP 18; TEMP 98.1; O2SAT 97
[2024-11-11 08:26] LABS: GLUCOMETER DEV NAME(LOC) 3EX.2; GLUCOSE,POINT OF CARE 187 MG/DL (70-110)
[2024-11-11 09:57] LABS: CALCIUM, TOTAL 8.9 mg/dL (8.8-10.5); CREATININE 1.77 mg/dL (0.60-1.30); POTASSIUM 4.8 mmol/L (3.5-5.1)
[2024-11-11 10:26] VITALS: BP 143/83; PULSE 85; RESP 17; TEMP 97.8; O2SAT 98
[2024-11-11 11:25] LABS: GLUCOMETER DEV NAME(LOC) 3EX.2; GLUCOSE,POINT OF CARE 254 MG/DL (70-110)
[2024-11-11 16:21] LABS: GLUCOMETER DEV NAME(LOC) 3EX.2; GLUCOSE,POINT OF CARE 324 MG/DL (70-110)
[2024-11-11 20:10] LABS: GLUCOMETER DEV NAME(LOC) 3EX.2; GLUCOSE,POINT OF CARE 285 MG/DL (70-110)
[2024-11-11 21:00] VITALS: BP 123/71; PULSE 82; RESP 19; TEMP 97.4; O2SAT 98
[2024-11-12 06:51] LABS: GLUCOMETER DEV NAME(LOC) 3E.C; GLUCOSE,POINT OF CARE 335 MG/DL (70-110)
[2024-11-12 08:00] VITALS: BP 142/61; PULSE 70; RESP 18; TEMP 97.5; O2SAT 100
[2024-11-12 11:31] LABS: GLUCOMETER DEV NAME(LOC) 3E.C; GLUCOSE,POINT OF CARE 149 MG/DL (70-110)
[2024-11-12 16:31] LABS: GLUCOMETER DEV NAME(LOC) 3E.C; GLUCOSE,POINT OF CARE 157 MG/DL (70-110)
[2024-11-12 20:00] VITALS: BP 151/89; PULSE 80; RESP 19; TEMP 98.2; O2SAT 97
[2024-11-12 20:16] LABS: GLUCOMETER DEV NAME(LOC) 3E.C; GLUCOSE,POINT OF CARE 265 MG/DL (70-110)
[2024-11-13 07:06] LABS: GLUCOMETER DEV NAME(LOC) 3EX.2; GLUCOSE,POINT OF CARE 362 MG/DL (70-110)
[2024-11-13] MEDS: GuaiFENesin/D-METHORPHAN [SUGAR-FREE] 200-20MG/10 ML SYRUP UDCUP PO PRN (08:36)
[2024-11-13 08:43] VITALS: BP 118/83; PULSE 77; RESP 17; TEMP 97; O2SAT 98
[2024-11-13 11:21] LABS: GLUCOMETER DEV NAME(LOC) 3EX.2; GLUCOSE,POINT OF CARE 231 MG/DL (70-110)
[2024-11-13 16:21] LABS: GLUCOMETER DEV NAME(LOC) 3EX.2; GLUCOSE,POINT OF CARE 232 MG/DL (70-110)
[2024-11-13 20:30] LABS: GLUCOMETER DEV NAME(LOC) 3EX.2; GLUCOSE,POINT OF CARE 353 MG/DL (70-110)
[2024-11-13 20:53] VITALS: BP 116/63; PULSE 78; RESP 18; TEMP 97.1; O2SAT 98
[2024-11-14 06:00] LABS: GLUCOMETER DEV NAME(LOC) 3EX.2; GLUCOSE,POINT OF CARE 300 MG/DL (70-110)
[2024-11-14] MEDS: AZITHROMYCIN 500 MG TABLET PO SCH (08:57)
[2024-11-14 09:01] VITALS: BP 130/73; PULSE 71; RESP 19; TEMP 97.1; O2SAT 97
[2024-11-14 09:17] LABS: CREATININE 1.72 mg/dL (0.60-1.30); POTASSIUM 4.2 mmol/L (3.5-5.1)
[2024-11-14 11:31] LABS: GLUCOMETER DEV NAME(LOC) 3EX.2; GLUCOSE,POINT OF CARE 262 MG/DL (70-110)
[2024-11-14 16:30] LABS: GLUCOMETER DEV NAME(LOC) 3EX.2; GLUCOSE,POINT OF CARE 248 MG/DL (70-110)
[2024-11-14 20:31] LABS: GLUCOMETER DEV NAME(LOC) 3EX.2; GLUCOSE,POINT OF CARE 308 MG/DL (70-110)
[2024-11-14 20:41] VITALS: BP 126/73; PULSE 75; RESP 18; TEMP 98.1; O2SAT 96
[2024-11-15 02:20] LABS: COVID AG,FIA SOURCE NASAL SWAB
[2024-11-15 02:49] LABS: INFLUENZA TYPE A NEGATIVE FOR TYPE A (NEGATIVE); INFLUENZA TYPE B NEGATIVE FOR TYPE B (NEGATIVE); SARS-COV2 (COVID) ANTIGEN,FIA Negative (Negative)
[2024-11-15 05:46] LABS: GLUCOMETER DEV NAME(LOC) 3EX.2; GLUCOSE,POINT OF CARE 208 MG/DL (70-110)
[2024-11-15 10:22] VITALS: BP 153/77; PULSE 83; RESP 18; O2SAT 97
[2024-11-15 11:45] LABS: GLUCOMETER DEV NAME(LOC) 3EX.2; GLUCOSE,POINT OF CARE 221 MG/DL (70-110)
[2024-11-15 17:00] LABS: GLUCOMETER DEV NAME(LOC) 3EX.2; GLUCOSE,POINT OF CARE 355 MG/DL (70-110)
[2024-11-15 20:54] VITALS: BP 134/79; PULSE 74; RESP 18; TEMP 98; O2SAT 98
[2024-11-15 22:20] LABS: GLUCOMETER DEV NAME(LOC) 3EX.2; GLUCOSE,POINT OF CARE 366 MG/DL (70-110)
[2024-11-16 06:55] LABS: GLUCOMETER DEV NAME(LOC) 3EX.2; GLUCOSE,POINT OF CARE 277 MG/DL (70-110)
[2024-11-16 09:23] VITALS: BP 111/45; PULSE 60; RESP 18; TEMP 97; O2SAT 95
[2024-11-16 11:40] LABS: GLUCOMETER DEV NAME(LOC) 3EX.2; GLUCOSE,POINT OF CARE 287 MG/DL (70-110)
[2024-11-16 17:40] LABS: GLUCOMETER DEV NAME(LOC) 3EX.2; GLUCOSE,POINT OF CARE 388 MG/DL (70-110)
[2024-11-16 20:41] LABS: GLUCOMETER DEV NAME(LOC) 3EX.2; GLUCOSE,POINT OF CARE 298 MG/DL (70-110)
[2024-11-16 21:00] VITALS: BP 137/60; PULSE 78; RESP 17; TEMP 98.2; O2SAT 98
[2024-11-17 06:21] LABS: GLUCOMETER DEV NAME(LOC) 3EX.2; GLUCOSE,POINT OF CARE 270 MG/DL (70-110)
[2024-11-17 10:04] VITALS: BP 131/72; PULSE 72; RESP 17; TEMP 97.3; O2SAT 99
[2024-11-17 11:36] LABS: GLUCOMETER DEV NAME(LOC) 3E.C; GLUCOSE,POINT OF CARE 380 MG/DL (70-110)
[2024-11-17 16:40] LABS: GLUCOMETER DEV NAME(LOC) 3E.C; GLUCOSE,POINT OF CARE 220 MG/DL (70-110)
[2024-11-17 19:45] VITALS: BP 114/70; PULSE 82; RESP 18; TEMP 97.2; O2SAT 98
[2024-11-17 20:30] LABS: GLUCOMETER DEV NAME(LOC) 3EX.2; GLUCOSE,POINT OF CARE 335 MG/DL (70-110)
[2024-11-17 22:15] VITALS: RESP 18
[2024-11-18 06:21] LABS: GLUCOMETER DEV NAME(LOC) 3EX.2; GLUCOSE,POINT OF CARE 195 MG/DL (70-110)
[2024-11-18 09:19] VITALS: BP 112/61; PULSE 63; RESP 18; TEMP 97.6; O2SAT 100
[2024-11-18 11:46] LABS: GLUCOMETER DEV NAME(LOC) 3EX.2; GLUCOSE,POINT OF CARE 357 MG/DL (70-110)
[2024-11-18 17:06] LABS: GLUCOMETER DEV NAME(LOC) 3EX.2; GLUCOSE,POINT OF CARE 334 MG/DL (70-110)
[2024-11-18 20:00] VITALS: BP 130/84; PULSE 72; RESP 18; TEMP 97.3; O2SAT 97
[2024-11-18 20:45] LABS: GLUCOMETER DEV NAME(LOC) 3E.C; GLUCOSE,POINT OF CARE 411 MG/DL (70-110)
[2024-11-19 05:50] LABS: GLUCOMETER DEV NAME(LOC) 3EX.2; GLUCOSE,POINT OF CARE 239 MG/DL (70-110)
[2024-11-19 08:47] LABS: CALCIUM, TOTAL 8.7 mg/dL (8.8-10.5); CREATININE 1.92 mg/dL (0.60-1.30); POTASSIUM 4.4 mmol/L (3.5-5.1)
[2024-11-19 09:25] VITALS: BP 112/62; PULSE 66; RESP 19; TEMP 98.2; O2SAT 100
[2024-11-19 11:56] LABS: GLUCOMETER DEV NAME(LOC) 3EX.2; GLUCOSE,POINT OF CARE 232 MG/DL (70-110)
[2024-11-19 16:46] LABS: GLUCOMETER DEV NAME(LOC) 3EX.2; GLUCOSE,POINT OF CARE 325 MG/DL (70-110)
[2024-11-19 20:15] LABS: GLUCOMETER DEV NAME(LOC) 3EX.2; GLUCOSE,POINT OF CARE 349 MG/DL (70-110)
[2024-11-19 20:17] VITALS: BP 142/71; PULSE 76; RESP 19; TEMP 98.3; O2SAT 99
[2024-11-20 06:11] LABS: GLUCOMETER DEV NAME(LOC) 3E.C; GLUCOSE,POINT OF CARE 255 MG/DL (70-110)
[2024-11-20 08:53] VITALS: BP 140/74; PULSE 96; RESP 17; TEMP 97.2; O2SAT 96
[2024-11-20 11:35] LABS: GLUCOMETER DEV NAME(LOC) 3EX.2; GLUCOSE,POINT OF CARE 296 MG/DL (70-110)
[2024-11-20 17:10] LABS: GLUCOMETER DEV NAME(LOC) 3EX.2; GLUCOSE,POINT OF CARE 271 MG/DL (70-110)
[2024-11-20 20:21] LABS: GLUCOMETER DEV NAME(LOC) 3EX.2; GLUCOSE,POINT OF CARE 487 MG/DL (70-110)
[2024-11-20 20:28] VITALS: BP 150/80; PULSE 69; RESP 18; TEMP 97.2; O2SAT 94
[2024-11-21 06:16] LABS: GLUCOMETER DEV NAME(LOC) 3EX.2; GLUCOSE,POINT OF CARE 245 MG/DL (70-110)
[2024-11-21 08:55] VITALS: BP 132/66; PULSE 63; RESP 16; TEMP 98.4; O2SAT 99
[2024-11-21 17:05] LABS: GLUCOMETER DEV NAME(LOC) 3EX.2; GLUCOSE,POINT OF CARE 320 MG/DL (70-110)
[2024-11-21 20:36] LABS: GLUCOMETER DEV NAME(LOC) 3EX.2; GLUCOSE,POINT OF CARE 417 MG/DL (70-110)
[2024-11-21 21:17] VITALS: BP 116/72; PULSE 78; RESP 18; TEMP 97.1; O2SAT 97
[2024-11-22 06:50] LABS: GLUCOMETER DEV NAME(LOC) 3E.C; GLUCOSE,POINT OF CARE 230 MG/DL (70-110)
[2024-11-22 09:00] VITALS: BP 126/71; PULSE 68; RESP 17; TEMP 97.8; O2SAT 99
[2024-11-22 11:31] LABS: GLUCOMETER DEV NAME(LOC) 3EX.2; GLUCOSE,POINT OF CARE 259 MG/DL (70-110)
[2024-11-22 16:50] LABS: GLUCOMETER DEV NAME(LOC) 3EX.2; GLUCOSE,POINT OF CARE 308 MG/DL (70-110)
[2024-11-22 20:41] LABS: GLUCOMETER DEV NAME(LOC) 3E.C; GLUCOSE,POINT OF CARE 260 MG/DL (70-110)
[2024-11-22 21:20] VITALS: BP 119/68; PULSE 68; RESP 17; TEMP 97.9; O2SAT 98
[2024-11-23 05:51] LABS: GLUCOMETER DEV NAME(LOC) 3E.C; GLUCOSE,POINT OF CARE 170 MG/DL (70-110)
[2024-11-23 09:15] VITALS: RESP 18; TEMP 98.3; O2SAT 99
[2024-11-23 11:46] LABS: GLUCOMETER DEV NAME(LOC) 3EX.2; GLUCOSE,POINT OF CARE 205 MG/DL (70-110)
[2024-11-23 16:51] LABS: GLUCOMETER DEV NAME(LOC) 3EX.2; GLUCOSE,POINT OF CARE 321 MG/DL (70-110)
[2024-11-23 20:26] LABS: GLUCOMETER DEV NAME(LOC) 3E.C; GLUCOSE,POINT OF CARE 398 MG/DL (70-110)
[2024-11-23 20:53] VITALS: BP 154/74; PULSE 75; RESP 17; TEMP 97.7; O2SAT 98
[2024-11-24 05:40] LABS: GLUCOMETER DEV NAME(LOC) 3E.C; GLUCOSE,POINT OF CARE 122 MG/DL (70-110)
[2024-11-24 10:25] LABS: GLUCOMETER DEV NAME(LOC) 3EX.2; GLUCOSE,POINT OF CARE 251 MG/DL (70-110)
[2024-11-24 10:43] VITALS: BP 127/61; PULSE 74; RESP 18; TEMP 97.4; O2SAT 96
[2024-11-24 12:05] LABS: GLUCOMETER DEV NAME(LOC) 3EX.2; GLUCOSE,POINT OF CARE 222 MG/DL (70-110)
[2024-11-24 16:46] LABS: GLUCOMETER DEV NAME(LOC) 3EX.2; GLUCOSE,POINT OF CARE 175 MG/DL (70-110)
[2024-11-24 20:35] LABS: GLUCOMETER DEV NAME(LOC) 3E.C; GLUCOSE,POINT OF CARE 363 MG/DL (70-110)
[2024-11-24 20:38] VITALS: BP 133/69; PULSE 60; RESP 18; TEMP 97.9; O2SAT 98
[2024-11-25 07:26] LABS: GLUCOMETER DEV NAME(LOC) 3E.C; GLUCOSE,POINT OF CARE 149 MG/DL (70-110)
[2024-11-25 10:12] LABS: CALCIUM, TOTAL 9.1 mg/dL (8.8-10.5); CREATININE 2.02 mg/dL (0.60-1.30); POTASSIUM 4.4 mmol/L (3.5-5.1)
[2024-11-25 11:36] VITALS: BP 116/67; PULSE 70; RESP 19; TEMP 98; O2SAT 95
[2024-11-25 11:40] LABS: GLUCOMETER DEV NAME(LOC) 3EX.2; GLUCOSE,POINT OF CARE 222 MG/DL (70-110)
[2024-11-25 17:15] LABS: GLUCOMETER DEV NAME(LOC) 3EX.2; GLUCOSE,POINT OF CARE 360 MG/DL (70-110)
[2024-11-25 20:31] LABS: GLUCOMETER DEV NAME(LOC) 3E.C; GLUCOSE,POINT OF CARE 327 MG/DL (70-110)
[2024-11-25 21:27] VITALS: BP 125/63; PULSE 69; RESP 18; TEMP 98; O2SAT 99
[2024-11-26 06:31] LABS: GLUCOMETER DEV NAME(LOC) 3E.C; GLUCOSE,POINT OF CARE 291 MG/DL (70-110)
[2024-11-26 10:30] VITALS: RESP 16
[2024-11-26 11:56] LABS: GLUCOMETER DEV NAME(LOC) 3E.C; GLUCOSE,POINT OF CARE 239 MG/DL (70-110)
[2024-11-26 17:00] LABS: GLUCOMETER DEV NAME(LOC) 3E.C; GLUCOSE,POINT OF CARE 160 MG/DL (70-110)
[2024-11-26 20:41] VITALS: BP 122/62; PULSE 75; RESP 18; TEMP 97.8; O2SAT 95
[2024-11-26 20:45] LABS: GLUCOMETER DEV NAME(LOC) 3E.C; GLUCOSE,POINT OF CARE 112 MG/DL (70-110)
[2024-11-27 06:15] LABS: GLUCOMETER DEV NAME(LOC) 3E.C; GLUCOSE,POINT OF CARE 86 MG/DL (70-110)
[2024-11-27 09:16] VITALS: BP 129/70; PULSE 69; RESP 17; TEMP 97.4; O2SAT 99
[2024-11-27 11:55] LABS: GLUCOMETER DEV NAME(LOC) 3EX.2; GLUCOSE,POINT OF CARE 87 MG/DL (70-110)
[2024-11-27 17:46] LABS: GLUCOMETER DEV NAME(LOC) 3EX.2; GLUCOSE,POINT OF CARE 144 MG/DL (70-110)
[2024-11-27 20:21] LABS: GLUCOMETER DEV NAME(LOC) 3E.C; GLUCOSE,POINT OF CARE 243 MG/DL (70-110)
[2024-11-27 20:55] VITALS: BP 129/60; PULSE 79; RESP 18; TEMP 97.8; O2SAT 99
[2024-11-28 05:50] LABS: GLUCOMETER DEV NAME(LOC) 3E.C; GLUCOSE,POINT OF CARE 260 MG/DL (70-110)
[2024-11-28 09:16] VITALS: BP 155/87; PULSE 70; RESP 18; TEMP 96.9; O2SAT 100
[2024-11-28 11:51] LABS: GLUCOMETER DEV NAME(LOC) 3E.C; GLUCOSE,POINT OF CARE 227 MG/DL (70-110)
[2024-11-28 18:01] LABS: GLUCOMETER DEV NAME(LOC) 3E.C; GLUCOSE,POINT OF CARE 213 MG/DL (70-110)
[2024-11-28 20:16] LABS: GLUCOMETER DEV NAME(LOC) 3E.C; GLUCOSE,POINT OF CARE 225 MG/DL (70-110)
[2024-11-28 20:28] VITALS: BP 120/59; PULSE 57; RESP 18; TEMP 97.1; O2SAT 100
[2024-11-29 06:40] LABS: GLUCOMETER DEV NAME(LOC) 3E.C; GLUCOSE,POINT OF CARE 91 MG/DL (70-110)
[2024-11-29 09:30] VITALS: BP 131/68; PULSE 77; RESP 18; TEMP 97.4; O2SAT 99
[2024-11-29 11:41] LABS: GLUCOMETER DEV NAME(LOC) 3EX.2; GLUCOSE,POINT OF CARE 143 MG/DL (70-110)
[2024-11-29 16:36] LABS: GLUCOMETER DEV NAME(LOC) 3EX.2; GLUCOSE,POINT OF CARE 154 MG/DL (70-110)
[2024-11-29 20:27] LABS: GLUCOMETER DEV NAME(LOC) 3E.C; GLUCOSE,POINT OF CARE 194 MG/DL (70-110)
[2024-11-29 20:56] VITALS: BP 138/75; PULSE 68; RESP 18; TEMP 97.8
[2024-11-30 06:51] LABS: GLUCOMETER DEV NAME(LOC) 3E.C; GLUCOSE,POINT OF CARE 160 MG/DL (70-110)
[2024-11-30 08:44] LABS: CALCIUM, TOTAL 8.4 mg/dL (8.8-10.5); CREATININE 1.71 mg/dL (0.60-1.30)
[2024-11-30 09:00] VITALS: BP 120/71; PULSE 72; RESP 19; TEMP 97.1; O2SAT 98
[2024-11-30 11:30] LABS: GLUCOMETER DEV NAME(LOC) 3EX.2; GLUCOSE,POINT OF CARE 127 MG/DL (70-110)
[2024-11-30 16:26] LABS: GLUCOMETER DEV NAME(LOC) 3EX.2; GLUCOSE,POINT OF CARE 165 MG/DL (70-110)
[2024-11-30 20:21] LABS: GLUCOMETER DEV NAME(LOC) 3E.C; GLUCOSE,POINT OF CARE 192 MG/DL (70-110)
[2024-11-30 20:29] VITALS: BP 121/63; PULSE 60; RESP 16; TEMP 97.8; O2SAT 98
[2024-12-01 06:45] LABS: GLUCOMETER DEV NAME(LOC) 3EX.2; GLUCOSE,POINT OF CARE 118 MG/DL (70-110)
[2024-12-01 08:00] VITALS: BP 106/66; PULSE 62; RESP 18; TEMP 98.1; O2SAT 99
[2024-12-01 11:41] LABS: GLUCOMETER DEV NAME(LOC) 3E.C; GLUCOSE,POINT OF CARE 117 MG/DL (70-110)
[2024-12-01 16:31] LABS: GLUCOMETER DEV NAME(LOC) 3E.C; GLUCOSE,POINT OF CARE 212 MG/DL (70-110)
[2024-12-01 20:11] VITALS: BP 114/64; PULSE 65; RESP 19; TEMP 97.2; O2SAT 100
[2024-12-01 20:16] LABS: GLUCOMETER DEV NAME(LOC) 3EX.2; GLUCOSE,POINT OF CARE 182 MG/DL (70-110)
[2024-12-02 06:50] LABS: GLUCOMETER DEV NAME(LOC) 3EX.2; GLUCOSE,POINT OF CARE 97 MG/DL (70-110)
[2024-12-02 11:21] LABS: GLUCOMETER DEV NAME(LOC) 3EX.2; GLUCOSE,POINT OF CARE 150 MG/DL (70-110)
[2024-12-02 15:42] VITALS: BP 125/77; PULSE 69; RESP 17; TEMP 98; O2SAT 98
[2024-12-02 17:11] LABS: GLUCOMETER DEV NAME(LOC) 3EX.2; GLUCOSE,POINT OF CARE 168 MG/DL (70-110)
[2024-12-02 20:00] VITALS: BP 126/64; PULSE 62; RESP 17; TEMP 96.5; O2SAT 98
[2024-12-02 20:26] LABS: GLUCOMETER DEV NAME(LOC) 3E.C; GLUCOSE,POINT OF CARE 199 MG/DL (70-110)
[2024-12-03 04:00] VITALS: RESP 18
[2024-12-03 05:56] LABS: GLUCOMETER DEV NAME(LOC) 3E.C; GLUCOSE,POINT OF CARE 113 MG/DL (70-110)
[2024-12-03 09:48] VITALS: BP 124/58; PULSE 68; RESP 18; TEMP 97.8; O2SAT 98
[2024-12-03 11:40] LABS: GLUCOMETER DEV NAME(LOC) 3E.C; GLUCOSE,POINT OF CARE 165 MG/DL (70-110)
[2024-12-03 17:30] LABS: GLUCOMETER DEV NAME(LOC) 3E.C; GLUCOSE,POINT OF CARE 271 MG/DL (70-110)
[2024-12-03 20:20] VITALS: BP 151/76; PULSE 61; RESP 18; TEMP 98; O2SAT 97
[2024-12-03 20:26] LABS: GLUCOMETER DEV NAME(LOC) 3EX.2; GLUCOSE,POINT OF CARE 173 MG/DL (70-110)
[2024-12-04 05:45] LABS: GLUCOMETER DEV NAME(LOC) 3EX.2; GLUCOSE,POINT OF CARE 107 MG/DL (70-110)
[2024-12-04 11:52] VITALS: BP 103/61; PULSE 69; RESP 18; TEMP 97.2; O2SAT 97
[2024-12-04 11:56] LABS: GLUCOMETER DEV NAME(LOC) 3E.C; GLUCOSE,POINT OF CARE 135 MG/DL (70-110)
[2024-12-04 16:56] LABS: GLUCOMETER DEV NAME(LOC) 3E.C; GLUCOSE,POINT OF CARE 259 MG/DL (70-110)
[2024-12-04 20:15] VITALS: BP 104/66; PULSE 63; RESP 18; TEMP 97.7; O2SAT 97
[2024-12-04 20:15] LABS: GLUCOMETER DEV NAME(LOC) 3EX.2; GLUCOSE,POINT OF CARE 150 MG/DL (70-110)
[2024-12-05 06:35] LABS: GLUCOMETER DEV NAME(LOC) 3EX.2; GLUCOSE,POINT OF CARE 145 MG/DL (70-110)
[2024-12-05 08:00] VITALS: BP 142/60; PULSE 72; RESP 60; TEMP 96.8; O2SAT 98
[2024-12-05 11:45] LABS: GLUCOMETER DEV NAME(LOC) 3E.C; GLUCOSE,POINT OF CARE 180 MG/DL (70-110)
[2024-12-05 17:25] LABS: GLUCOMETER DEV NAME(LOC) 3E.C; GLUCOSE,POINT OF CARE 174 MG/DL (70-110)
[2024-12-05 20:36] LABS: GLUCOMETER DEV NAME(LOC) 3EX.2; GLUCOSE,POINT OF CARE 215 MG/DL (70-110)
[2024-12-05 21:58] VITALS: BP 138/71; PULSE 66; RESP 18; TEMP 97.1; O2SAT 99
[2024-12-06 06:41] LABS: GLUCOMETER DEV NAME(LOC) 3EX.2; GLUCOSE,POINT OF CARE 121 MG/DL (70-110)
[2024-12-06 09:17] VITALS: BP 133/74; PULSE 62; RESP 19; TEMP 97.8; O2SAT 100
[2024-12-06 12:05] LABS: GLUCOMETER DEV NAME(LOC) 3E.C; GLUCOSE,POINT OF CARE 161 MG/DL (70-110)
[2024-12-06 17:06] LABS: GLUCOMETER DEV NAME(LOC) 3E.C; GLUCOSE,POINT OF CARE 219 MG/DL (70-110)
[2024-12-06 20:44] VITALS: BP 116/58; PULSE 66; RESP 18; TEMP 97.6; O2SAT 97
[2024-12-06 20:55] LABS: GLUCOMETER DEV NAME(LOC) 3EX.2; GLUCOSE,POINT OF CARE 243 MG/DL (70-110)
[2024-12-07 06:41] LABS: GLUCOMETER DEV NAME(LOC) 3EX.2; GLUCOSE,POINT OF CARE 133 MG/DL (70-110)
[2024-12-07 08:45] VITALS: BP 120/68; PULSE 69; RESP 18; TEMP 97.8; O2SAT 98
[2024-12-07 13:00] LABS: GLUCOMETER DEV NAME(LOC) 3EX.2; GLUCOSE,POINT OF CARE 205 MG/DL (70-110)
[2024-12-07 17:01] LABS: GLUCOMETER DEV NAME(LOC) 3EX.2; GLUCOSE,POINT OF CARE 274 MG/DL (70-110)
[2024-12-07 20:15] LABS: GLUCOMETER DEV NAME(LOC) 3EX.2; GLUCOSE,POINT OF CARE 251 MG/DL (70-110)
[2024-12-07 20:51] VITALS: BP 123/68; PULSE 74; RESP 18; TEMP 97.6; O2SAT 99
[2024-12-08 06:40] LABS: GLUCOMETER DEV NAME(LOC) 3EX.2; GLUCOSE,POINT OF CARE 135 MG/DL (70-110)
[2024-12-08 08:15] VITALS: BP 117/60; PULSE 65; RESP 19; TEMP 97.7; O2SAT 96
[2024-12-08 11:35] LABS: GLUCOMETER DEV NAME(LOC) 3EX.2; GLUCOSE,POINT OF CARE 178 MG/DL (70-110)
[2024-12-08 17:35] LABS: GLUCOMETER DEV NAME(LOC) 3EX.2; GLUCOSE,POINT OF CARE 270 MG/DL (70-110)
[2024-12-08 20:11] LABS: GLUCOMETER DEV NAME(LOC) 3EX.2; GLUCOSE,POINT OF CARE 249 MG/DL (70-110)
[2024-12-08 20:39] VITALS: BP 147/72; PULSE 62; RESP 18; TEMP 97.3; O2SAT 96
[2024-12-09 06:21] LABS: GLUCOMETER DEV NAME(LOC) 3EX.2; GLUCOSE,POINT OF CARE 139 MG/DL (70-110)
[2024-12-09 09:06] VITALS: BP 146/70; PULSE 69; RESP 18; TEMP 98.3; O2SAT 98
[2024-12-09 09:07] VITALS: BP 146/70; PULSE 69; RESP 18; TEMP 98.3; O2SAT 98
[2024-12-09 11:21] LABS: GLUCOMETER DEV NAME(LOC) 3E.C; GLUCOSE,POINT OF CARE 225 MG/DL (70-110)
[2024-12-09 11:36] LABS: GLUCOMETER DEV NAME(LOC) 3EX.2; GLUCOSE,POINT OF CARE 195 MG/DL (70-110)
[2024-12-09 16:50] LABS: GLUCOMETER DEV NAME(LOC) 3EX.2; GLUCOSE,POINT OF CARE 216 MG/DL (70-110)
[2024-12-09 20:26] LABS: GLUCOMETER DEV NAME(LOC) 3EX.2; GLUCOSE,POINT OF CARE 233 MG/DL (70-110)
[2024-12-09 20:51] VITALS: BP 131/66; PULSE 88; RESP 18; TEMP 97.8; O2SAT 99
[2024-12-10 06:30] LABS: GLUCOMETER DEV NAME(LOC) 3EX.2; GLUCOSE,POINT OF CARE 132 MG/DL (70-110)
[2024-12-10 12:06] LABS: GLUCOMETER DEV NAME(LOC) 3EX.2; GLUCOSE,POINT OF CARE 227 MG/DL (70-110)
[2024-12-10 12:18] VITALS: BP 111/56; PULSE 66; RESP 18; TEMP 98; O2SAT 98
[2024-12-10 17:20] LABS: GLUCOMETER DEV NAME(LOC) 3EX.2; GLUCOSE,POINT OF CARE 171 MG/DL (70-110)
[2024-12-10 20:01] LABS: GLUCOMETER DEV NAME(LOC) 3EX.2; GLUCOSE,POINT OF CARE 181 MG/DL (70-110)
[2024-12-10 21:21] VITALS: BP 135/65; PULSE 64; RESP 18; TEMP 98.3; O2SAT 99
[2024-12-11 06:25] LABS: GLUCOMETER DEV NAME(LOC) 3EX.2; GLUCOSE,POINT OF CARE 131 MG/DL (70-110)
[2024-12-11 09:00] VITALS: BP 113/57; PULSE 60; RESP 18; TEMP 98.2; O2SAT 97
[2024-12-11 12:00] LABS: GLUCOMETER DEV NAME(LOC) 3EX.2; GLUCOSE,POINT OF CARE 161 MG/DL (70-110)
[2024-12-11 16:55] LABS: GLUCOMETER DEV NAME(LOC) 3EX.2; GLUCOSE,POINT OF CARE 269 MG/DL (70-110)
[2024-12-11 20:10] LABS: GLUCOMETER DEV NAME(LOC) 3EX.2; GLUCOSE,POINT OF CARE 320 MG/DL (70-110)
[2024-12-11 21:05] VITALS: BP_SYST 138; BP_SYST 163; BP_DIAS 85; BP_DIAS 90; PULSE 63; RESP 18; TEMP 97.6; O2SAT 99
[2024-12-12 06:36] LABS: GLUCOMETER DEV NAME(LOC) 3EX.2; GLUCOSE,POINT OF CARE 141 MG/DL (70-110)
[2024-12-12 09:12] VITALS: BP 145/78; PULSE 64; RESP 18; TEMP 97.8; O2SAT 96
[2024-12-12 11:55] LABS: GLUCOMETER DEV NAME(LOC) 3EX.2; GLUCOSE,POINT OF CARE 216 MG/DL (70-110)
[2024-12-12 17:06] LABS: GLUCOMETER DEV NAME(LOC) 3EX.2; GLUCOSE,POINT OF CARE 212 MG/DL (70-110)
[2024-12-12 20:01] LABS: GLUCOMETER DEV NAME(LOC) 3EX.2; GLUCOSE,POINT OF CARE 240 MG/DL (70-110)
[2024-12-12 21:52] VITALS: BP 139/70; PULSE 64; RESP 18; TEMP 97.7; O2SAT 95
[2024-12-13 06:26] LABS: GLUCOMETER DEV NAME(LOC) 3EX.2; GLUCOSE,POINT OF CARE 144 MG/DL (70-110)
[2024-12-13 11:31] LABS: GLUCOMETER DEV NAME(LOC) 3EX.2; GLUCOSE,POINT OF CARE 234 MG/DL (70-110)
[2024-12-13 17:40] LABS: GLUCOMETER DEV NAME(LOC) 3EX.2; GLUCOSE,POINT OF CARE 261 MG/DL (70-110)
[2024-12-13 20:23] VITALS: BP 144/67; PULSE 66; RESP 18; TEMP 97.2; O2SAT 96
[2024-12-13 20:45] LABS: GLUCOMETER DEV NAME(LOC) 3EX.2; GLUCOSE,POINT OF CARE 203 MG/DL (70-110)
[2024-12-14 06:31] LABS: GLUCOMETER DEV NAME(LOC) 3EX.2; GLUCOSE,POINT OF CARE 154 MG/DL (70-110)
[2024-12-14 10:46] VITALS: BP 143/64; PULSE 62; RESP 18; TEMP 98; O2SAT 98
[2024-12-14 11:16] LABS: GLUCOMETER DEV NAME(LOC) 3EX.2; GLUCOSE,POINT OF CARE 163 MG/DL (70-110)
[2024-12-14 11:51] LABS: GLUCOMETER DEV NAME(LOC) 3E.C; GLUCOSE,POINT OF CARE 158 MG/DL (70-110)
[2024-12-14 17:30] LABS: GLUCOMETER DEV NAME(LOC) 3E.C; GLUCOSE,POINT OF CARE 192 MG/DL (70-110)
[2024-12-14 20:12] LABS: GLUCOMETER DEV NAME(LOC) 3EX.2; GLUCOSE,POINT OF CARE 246 MG/DL (70-110)
[2024-12-14 20:38] VITALS: BP 129/63; PULSE 64; RESP 18; TEMP 97.3
[2024-12-15 05:45] LABS: GLUCOMETER DEV NAME(LOC) 3EX.2; GLUCOSE,POINT OF CARE 170 MG/DL (70-110)
[2024-12-15 08:35] VITALS: BP 139/73; PULSE 67; RESP 17; TEMP 98; O2SAT 99
[2024-12-15 11:31] LABS: GLUCOMETER DEV NAME(LOC) 3E.C; GLUCOSE,POINT OF CARE 239 MG/DL (70-110)
[2024-12-15 17:45] LABS: GLUCOMETER DEV NAME(LOC) 3E.C; GLUCOSE,POINT OF CARE 263 MG/DL (70-110)
[2024-12-15 20:10] LABS: GLUCOMETER DEV NAME(LOC) 3EX.2; GLUCOSE,POINT OF CARE 242 MG/DL (70-110)
[2024-12-15 20:37] VITALS: BP 130/68; PULSE 65; RESP 18; TEMP 97.4; O2SAT 98
[2024-12-16 06:21] LABS: GLUCOMETER DEV NAME(LOC) 3EX.2; GLUCOSE,POINT OF CARE 156 MG/DL (70-110)
[2024-12-16 08:00] VITALS: BP 115/66; PULSE 70; RESP 18; TEMP 97.7; O2SAT 99
[2024-12-16 12:16] LABS: GLUCOMETER DEV NAME(LOC) 3EX.2; GLUCOSE,POINT OF CARE 258 MG/DL (70-110)
[2024-12-16 17:41] LABS: GLUCOMETER DEV NAME(LOC) 3EX.2; GLUCOSE,POINT OF CARE 385 MG/DL (70-110)
[2024-12-16 20:21] LABS: GLUCOMETER DEV NAME(LOC) 3EX.2; GLUCOSE,POINT OF CARE 259 MG/DL (70-110)
[2024-12-16 20:30] VITALS: BP 129/76; PULSE 67; RESP 16; TEMP 97.5; O2SAT 97
[2024-12-17 05:51] LABS: GLUCOMETER DEV NAME(LOC) 3EX.2; GLUCOSE,POINT OF CARE 136 MG/DL (70-110)
[2024-12-17 09:48] VITALS: BP 116/64; PULSE 63; RESP 18; TEMP 98.1; O2SAT 97
[2024-12-17 11:16] LABS: GLUCOMETER DEV NAME(LOC) 3EX.2; GLUCOSE,POINT OF CARE 206 MG/DL (70-110)
[2024-12-17 17:15] LABS: GLUCOMETER DEV NAME(LOC) 3EX.2; GLUCOSE,POINT OF CARE 307 MG/DL (70-110)
[2024-12-17 20:00] LABS: GLUCOMETER DEV NAME(LOC) 3EX.2; GLUCOSE,POINT OF CARE 386 MG/DL (70-110)
[2024-12-17 21:07] VITALS: BP 130/65; PULSE 63; RESP 18; TEMP 97; O2SAT 98
[2024-12-18 06:41] LABS: GLUCOMETER DEV NAME(LOC) 3EX.2; GLUCOSE,POINT OF CARE 194 MG/DL (70-110)
[2024-12-18 09:29] VITALS: RESP 17
[2024-12-18 10:40] VITALS: BP 115/74; PULSE 75; RESP 18; TEMP 98.2; O2SAT 98
[2024-12-18 11:46] LABS: GLUCOMETER DEV NAME(LOC) 3EX.2; GLUCOSE,POINT OF CARE 232 MG/DL (70-110)
[2024-12-18 17:51] LABS: GLUCOMETER DEV NAME(LOC) 3EX.2; GLUCOSE,POINT OF CARE 237 MG/DL (70-110)
[2024-12-18 20:15] LABS: GLUCOMETER DEV NAME(LOC) 3EX.2; GLUCOSE,POINT OF CARE 316 MG/DL (70-110)
[2024-12-18 21:11] VITALS: BP 128/67; PULSE 64; RESP 18; TEMP 98; O2SAT 99
[2024-12-19 06:55] LABS: GLUCOMETER DEV NAME(LOC) 3E.C; GLUCOSE,POINT OF CARE 170 MG/DL (70-110)
[2024-12-19 09:00] VITALS: BP 142/63; PULSE 64; RESP 18; TEMP 98.2; O2SAT 96
[2024-12-19 11:12] VITALS: BP 133/75; PULSE 72; RESP 17; TEMP 97; O2SAT 97
[2024-12-19 11:45] LABS: GLUCOMETER DEV NAME(LOC) 3E.C; GLUCOSE,POINT OF CARE 251 MG/DL (70-110)
[2024-12-19 17:20] LABS: GLUCOMETER DEV NAME(LOC) 3E.C; GLUCOSE,POINT OF CARE 324 MG/DL (70-110)
[2024-12-19 20:26] LABS: GLUCOMETER DEV NAME(LOC) 3E.C; GLUCOSE,POINT OF CARE 335 MG/DL (70-110)
[2024-12-19 22:45] VITALS: BP 142/63; PULSE 64; RESP 18; TEMP 98.2; O2SAT 96
[2024-12-20 05:55] LABS: GLUCOMETER DEV NAME(LOC) 3E.C; GLUCOSE,POINT OF CARE 192 MG/DL (70-110)
[2024-12-20 08:00] VITALS: BP 128/63; PULSE 68; RESP 19; TEMP 97.7; O2SAT 98
[2024-12-20 11:45] LABS: GLUCOMETER DEV NAME(LOC) 3EX.2; GLUCOSE,POINT OF CARE 221 MG/DL (70-110)
[2024-12-20 16:50] LABS: GLUCOMETER DEV NAME(LOC) 3E.C; GLUCOSE,POINT OF CARE 359 MG/DL (70-110)
[2024-12-20 20:30] LABS: GLUCOMETER DEV NAME(LOC) 3E.C; GLUCOSE,POINT OF CARE 396 MG/DL (70-110)
[2024-12-20 22:05] VITALS: BP 143/64; PULSE 74; RESP 18; TEMP 97.4; O2SAT 97
[2024-12-21 06:51] LABS: GLUCOMETER DEV NAME(LOC) 3E.C; GLUCOSE,POINT OF CARE 161 MG/DL (70-110)
[2024-12-21 09:20] VITALS: BP 127/64; PULSE 66; RESP 18; TEMP 97.8; O2SAT 100
[2024-12-21 11:56] LABS: GLUCOMETER DEV NAME(LOC) 3E.C; GLUCOSE,POINT OF CARE 209 MG/DL (70-110)
[2024-12-21 16:41] LABS: GLUCOMETER DEV NAME(LOC) 3E.C; GLUCOSE,POINT OF CARE 276 MG/DL (70-110)
[2024-12-21 20:56] LABS: GLUCOMETER DEV NAME(LOC) 3E.C; GLUCOSE,POINT OF CARE 288 MG/DL (70-110)
[2024-12-21 21:34] VITALS: BP 140/70; PULSE 70; RESP 18; TEMP 97.5; O2SAT 100
[2024-12-22 06:56] LABS: GLUCOMETER DEV NAME(LOC) 3E.C; GLUCOSE,POINT OF CARE 154 MG/DL (70-110)
[2024-12-22 10:37] VITALS: BP 138/69; PULSE 63; RESP 18; TEMP 98; O2SAT 97
[2024-12-22 11:45] LABS: GLUCOMETER DEV NAME(LOC) 3E.C; GLUCOSE,POINT OF CARE 206 MG/DL (70-110)
[2024-12-22 17:15] LABS: GLUCOMETER DEV NAME(LOC) 3E.C; GLUCOSE,POINT OF CARE 349 MG/DL (70-110)
[2024-12-22 20:56] LABS: GLUCOMETER DEV NAME(LOC) 3E.C; GLUCOSE,POINT OF CARE 253 MG/DL (70-110)
[2024-12-22 21:48] VITALS: BP 131/66; PULSE 63; RESP 18; TEMP 98.3; O2SAT 98
[2024-12-23 06:30] LABS: GLUCOMETER DEV NAME(LOC) 3E.C; GLUCOSE,POINT OF CARE 169 MG/DL (70-110)
[2024-12-23 10:50] VITALS: BP 115/60; PULSE 65; RESP 18; TEMP 97.6; O2SAT 97
[2024-12-23 10:51] LABS: GLUCOMETER DEV NAME(LOC) 3EX.2; GLUCOSE,POINT OF CARE 182 MG/DL (70-110)
[2024-12-23 17:21] LABS: GLUCOMETER DEV NAME(LOC) 3EX.2; GLUCOSE,POINT OF CARE 304 MG/DL (70-110)
[2024-12-23 20:00] VITALS: BP 135/65; PULSE 66; RESP 18; TEMP 98.1; O2SAT 98
[2024-12-23 21:51] LABS: GLUCOMETER DEV NAME(LOC) 3E.C; GLUCOSE,POINT OF CARE 272 MG/DL (70-110)
[2024-12-24 06:06] LABS: GLUCOMETER DEV NAME(LOC) 3E.C; GLUCOSE,POINT OF CARE 167 MG/DL (70-110)
[2024-12-24 10:39] VITALS: BP 132/65; PULSE 64; RESP 18; TEMP 97.1; O2SAT 97
[2024-12-24 11:40] LABS: GLUCOMETER DEV NAME(LOC) 3E.C; GLUCOSE,POINT OF CARE 239 MG/DL (70-110)
== END 2024-12-24 17:13 | disposition home or self-care (01) | DRG 885 ==
LOC: UNDOADMIN 22:17 → 3EI 22:17
PROVIDERS: ADMIT Psychiatry & Neurology Child & Adolescent Psychiatry; ATTEND Psychiatry & Neurology Child & Adolescent Psychiatry
PROC: GZHZZZZ Group Psychotherapy (ICD-10-PCS; principal; 2024-10-13)
PROC: GZ52ZZZ Individual Psychotherapy, Cognitive (ICD-10-PCS; 2024-10-13)
PROC: GZ56ZZZ Individual Psychotherapy, Supportive (ICD-10-PCS; 2024-10-13)
DX: F25.0 Schizoaffective disorder, bipolar type (principal); N17.9 Acute kidney failure, unspecified; E11.65 Type 2 diabetes mellitus with hyperglycemia; N39.0 Urinary tract infection, site not specified; I10 Essential (primary) hypertension; E78.00 Pure hypercholesterolemia, unspecified; F94.0 Selective mutism; Z20.822 Contact with and (suspected) exposure to COVID-19; G47.00 Insomnia, unspecified; Z91.148 Patient's other noncompliance with medication regimen for other reason; Z79.4 Long term (current) use of insulin; Z79.84 Long term (current) use of oral hypoglycemic drugs; Z79.899 Other long term (current) drug therapy
CPT/HCPCS: 71046; 80048; 80053; 80061; 82962; 83036; 84443; 85025; 87081; 87804; J1815; 36415-L1; 36415-TC